=== PATIENT | male | born 1985 | race Hispanic/Latino ===

== ENCOUNTER 2025-01-22 14:28 | Inpatient (IN) | payer BC, OTHER ==
[~2025-01-22] VITALS: Ht 177.8 cm; Wt 90.7 kg
--- NOTE | 2025-01-22 14:53 | EKG ---
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
[2025-01-22 15:11] LABS: IMMATURE GRANULOCYTE ABSOLUTE 0.01 K/uL (0-1); NUCLEATED RED BLOOD CELLS 0.0 % (0.0-0.19); PLATELET COUNT (AUTO) 19 K/uL (130-400); RED BLOOD CELL COUNT(AUTO) 2.62 MIL/uL (4.50-6.20); RED CELL DISTRIBUTION WIDTH 19.2 % (11.0-15.5); WHITE BLOOD COUNT (AUTO) 3.3 K/uL (4.8-10.8)
[2025-01-22 15:23] LABS: CREATININE 0.7 mg/dL (0.5-1.3); GLOMERULAR FILTR. RATE CALC 120.0 mL/min (>90); GLUCOSE,RANDOM 170.0 mg/dL (70-105); SODIUM SERUM 134.0 mmol/L (136-145); UREA NITROGEN, BLOOD 2.0 mg/dL (7-18)
[2025-01-22 15:34] LABS: ASPARTATE AMINOTRANSFERASE 119.0 U/L (10-37); TOTAL PROTEIN, SERUM 8.0 g/dL (6.0-8.3)
--- NOTE | 2025-01-22 15:41 | ERN ---
ED Note History of Present Illness Stated Complaint: WEAKNESS Chief Complaint: Weakness Time Seen by MD: 14:35 Time Seen by Midlevel: 14:35 Dictation: 39-YEAR-OLD MALE WHO PRESENTS TO THE ED FOR EVALUATION OF ABNORMAL LABS. WAS SEEN IN [place] LAST MONTH AND TOLD NEED A BLOOD TRANSFUSION DUE TO LOW PLATELETS HOWEVER WAITED TO COME IN. REPORTS HEAVY ALCOHOL DRINKING DAILY. ALSO REPORTS HE FELL AND LANDED ON HIS ABDOMEN FEW DAYS AGO. PATIENT CURRENTLY ASYMPTOMATIC AT THIS TIME DENYING CHEST PAIN, SHORTNESS OF BREATH, ABDOMINAL PAIN Allergies: Coded Allergies: No Known Drug Allergies (Unverified Allergy, Unknown, 01/22/25) Past Medical History Past Medical History: No Pertinent History Surgical History: None RN Note Reviewed/Agreed w/PFSH: Yes Review of System Dictation CONSTITUTIONAL: NEGATIVE FOR FEVER,CHILLS, AND WEIGHT LOSS EYES: NEGATIVE FOR INJURY, PAIN,REDNESS, AND DISCHARGE ENT: NEGATIVE FOR INJURY,PAIN OR SWELLING CARDIOVASCULAR: NEGATIVE FOR CHEST PAIN, PALPITATIONS, AND EDEMA RESPIRATORY: NEGATIVE FOR SHORTNESS OF BREATH, COUGH, AND WHEEZING, ABDOMEN/GI: NEGATIVE FOR ABDOMINAL PAIN, NAUSEA, VOMITING, DIARRHEA, AND CONSTIPATION BACK: NEGATIVE FOR INJURY AND PAIN : NEGATIVE FOR INJURY, BLEEDING AND DISCHARGE MS/EXTREMITY: NEGATIVE FOR INJURY AND DEFORMITY SKIN: NEGATIVE FOR RASH, AND DISCOLORATION NEURO: NEGATIVE FOR HEADACHE, WEAKNESS, NUMBNESS, TINGLING, AND SEIZURE PSYCH: NEGATIVE FOR SUICIDE IDEATION, HOMICIDAL IDEATION, AND HALLUCINATIONS Review of Systems: was completed Initial Vital Sign VS Vital Signs Date Time Temp Pulse Resp B/P (MAP) Pulse Ox O2 Delivery O2 Flow Rate FiO2 01/22/25 14:31 98.8 80 16 120/77 99 Room Air 0 01/22/25 15:24 21 Physical Exam Dictation GENERAL: AWAKE, ALERT, NAD HEAD/FACE: NORMOCEPHALIC, ATRAUMATIC EYES: PERRL, EOMI, VISION AT BASELINE, SCLERAL ICTERUS ENT: ORAL CAVITY CLEAR, TMS CLEAR, NO SIGNS OF INFECTION NECK: TRACHEA MIDLINE, SUPPLE, NO NUCHAL RIGIDITY CARDIOVASCULAR: RRR, NORMAL S1/S2, NO MRGS, NO JVD RESPIRATORY: CTAB, NO RESPIRATORY DISTRESS, NO RALES OR WHEEZES ABDOMEN: DISTENDED, BRUISING NOTED TO THE RIGHT SIDE OF ABDOMEN. NO REBOUND, GUARDING, RIGIDITY. SKIN: WARM, DRY, NORMAL TURGOR, NO RASH MS/EXTREMITY: PULSES EQUAL, NO CYANOSIS, NEUROVASCULAR INTACT, FROM NEURO: COAX4, GCS 15, STRENGTH 5/5, CN 2-12 INTACT, NORMAL CEREBELLAR EXAM, NORMAL GAIT, PSYCH: NORMAL BEHAVIOR, MOOD, AND AFFECT NORMAL Results (Laboratory/Radiology) Laboratory/Radiology Laboratory Tests Test 01/22/25 14:57 White Blood Count 3.3 K/uL (4.8-10.8) L Red Blood Count 2.62 MIL/uL (4.50-6.20) L Hemoglobin 8.4 g/dL (14.0-18.0) L Hematocrit 26.4 % (42-54) L Mean Corpuscular Volume 100.8 fL (79-99) H Mean Corpuscular Hemoglobin 32.1 pg (27.0-33.0) Mean Corpuscular Hemoglobin Concent 31.8 g/dL (32.0-36.0) L Red Cell Distribution Width 19.2 % (11.0-15.5) H Platelet Count 19 K/uL (130-400) L Mean Platelet Volume 12.2 fL (7.5-10.5) H Immature Granulocyte % (Auto) 0.3 % (0-1) Neutrophils (%) (Auto) 43.1 % (40.0-77.0) Lymphocytes (%) (Auto) 44.9 % (21.0-51.0) Monocytes (%) (Auto) 8.4 % (3.0-13.0) Eosinophils (%) (Auto) 2.4 % (0.0-8.0) Basophils (%) (Auto) 0.9 % (0.0-5.0) Neutrophils # (Auto) 1.4 K/uL (1.8-7.7) L Lymphocytes # (Auto) 1.5 K/uL (1.0-4.8) Monocytes # (Auto) 0.3 K/uL (0.1-1.0) Eosinophils # (Auto) 0.08 K/uL (0.00-0.70) Basophils # (Auto) 0.03 K/uL (0.00-0.20) Absolute Immature Granulocyte (auto 0.01 K/uL (0-1) Nucleated Red Blood Cells 0.0 % (0.0-0.19) Platelet Morphology Comment See comments Red Blood Cell Morphology See comments Sodium Level 134 mmol/L (136-145) L Potassium Level 3.2 mmol/L (3.5-5.1) L Chloride Level 101 mmol/L (101-111) Carbon Dioxide Level 26 mmol/L (21-32) Blood Urea Nitrogen 2 mg/dL (7-18) L Creatinine 0.7 mg/dL (0.5-1.3) Glomerular Filtration Rate Calc 120 mL/min (>90) Random Glucose 170 mg/dL (70-105) H Total Calcium 6.9 mg/dL (8.5-10.1) L Total Bilirubin 4.4 mg/dL (0.2-1.0) H Aspartate Amino Transf (AST/SGOT) 119 U/L (10-37) H Alanine Aminotransferase (ALT/SGPT) 29 U/L (12-78) Alkaline Phosphatase 181 U/L (50-136) H Ammonia 82 umol/L (11-32) H Troponin I High Sensitivity 13 ng/L (4-75) Total Protein 8.0 g/dL (6.0-8.3) Albumin 1.5 g/dL (3.5-5.0) L Labs Reviewed?: Yes EKG Comment: Date:01/22/2025 Time:1449 Ventricular rate:90 LA interval:176 QRS duration:119 QT/QTc:411 EKG interpretation: Sinus rhythm, prolonged QT interval Reviewed by ED Attending ED Course ED Course Orders Procedure Category Date Status Time Type And Screen BBK 01/22/25 Complete 14:44 Cbc With Differential LAB 01/22/25 Complete 14:44 Ammonia LAB 01/22/25 Complete 14:44 Comprehensive LAB 01/22/25 Complete Metabolic Panel 14:44 Urinalysis Profile LAB 01/22/25 Logged 14:44 Chest 1vw RAD 01/22/25 Resulted 14:44 Troponin I High LAB 01/22/25 Complete Sensitivity 14:44 12 Lead Ekg Tracing- EKG 01/22/25 Resulted Technical 14:44 Us Abdominal Ruq\Ltd US 01/22/25 Resulted 15:42 Ct Abdomen/Pelvis CT 01/22/25 Resulted W/Contrast 15:51 Iohexol (Omnipaque) PHA 01/22/25 Complete 16:02 Admit Orders ADM 01/22/25 Transmitted 18:11 Fall Precautions CPOE 01/22/25 Transmitted 18:11 Etoh Alcohol MANDEEP 01/22/25 In Process Withdrawal Ords 18:11 Chlordiazepoxide Hcl PHA 01/22/25 Logged 25 Mg Cap (Librium 18:30 Pharmacy PHA 01/22/25 Logged Communication 18:30 Use The [facility] CPOE 01/22/25 Transmitted Assmt. Tool 18:11 Assess The Need For CPOE 01/22/25 Transmitted Seizure & 18:11 Vs Per Unit Routine & CPOE 01/22/25 Transmitted With 18:11 Document Etoh CPOE 01/22/25 Transmitted Withdrawal Score 18:11 Diazepam 5 Mg/Ml 2 Ml PHA 01/22/25 Logged Syg (Valium 5 Mg/M 18:30 Consistent Carb DIET 01/23/25 Transmitted Breakfast Basic Metabolic Panel LAB 01/23/25 Verified 04:00 Cbc With Differential LAB 01/23/25 Verified 04:00 Magnesium LAB 01/23/25 Verified 04:00 Phosphorus LAB 01/23/25 Verified 04:00 Pathology Smear Review LAB 01/22/25 Logged 18:11 Activity: Ad Laila CPOE 01/22/25 Transmitted 18:11 Apply Knee High Teds CPOE 01/22/25 Transmitted 18:11 Apply Scds CPOE 01/22/25 Transmitted 18:11 Condition: CPOE 01/22/25 Transmitted 18:11 Daily Fluid Intake CPOE 01/22/25 Transmitted Restriction 18:11 Daily Weights CPOE 01/22/25 Transmitted 18:11 I&O Q Shift CPOE 01/22/25 Transmitted 18:11 Nurse To Enter Home CPOE 01/22/25 Transmitted Medication 18:11 Oxygen By Nc/Pulse Ox CPOE 01/22/25 Transmitted 18:11 Vital Signs(Adult CPOE 01/22/25 Transmitted Hospitalist) 18:11 Ammonia LAB 01/22/25 Logged 18:11 Alcohol, Blood LAB 01/22/25 Logged 18:11 Acetaminophen 325 Tab PHA 01/22/25 Logged (Tylenol 325mg Tab 18:30 Hydralazine 20mg Inj PHA 01/22/25 Logged (Apresoline 20mg In 18:30 Furosemide 40mg Vial PHA 01/22/25 Logged (Lasix 40mg Vial) 21:00 Famotidine 20mg Tab PHA 01/23/25 Logged (Pepcid 20mg Tab) 09:00 Lactulose 20 Gm/30 Ml PHA 01/22/25 Logged Udcup (Constulose 18:30 Morphine 4mg Syg PHA 01/22/25 Logged (Morphine 4mg Syg) 18:30 Ondansetron 4mg Inj PHA 01/22/25 Logged (Zofran 4mg Inj) 18:30 Current Medications Medications (Trade) Dose Ordered Sig/Jennifer Route PRN Reason Start Time Stop Time Status Last Admin Dose Admin Acetaminophen (TYLenol 325MG TAB) 650 mg Q6H PRN PO TEMPERATURE GREATER THAN 101.5 01/22/25 18:30 02/21/25 18:29 UNV Chlordiazepoxide HCl (LIBrium 25 MG CAP) 25 mg Q8H PO 01/22/25 18:30 01/29/25 18:29 UNV Diazepam (VALium 5 MG/ML 2 ML SYG) 5 mg Q4H PRN IVP ALCOHOL WITHDRAWAL PROTOCOL 01/22/25 18:30 01/29/25 18:29 UNV Famotidine (Pepcid 20mg Tab) 20 mg DAILY PO 01/23/25 09:00 02/22/25 08:59 UNV Furosemide (LASix 40MG VIAL) 40 mg BID IVP 01/22/25 21:00 02/21/25 20:59 UNV Hydralazine HCl (APRESOLine 20MG INJ) 10 mg Q6H PRN IV For:SBP above 160;DBP above 90 01/22/25 18:30 02/21/25 18:29 UNV Iohexol (Omnipaque) 75 ml STK-MED ONCE IV 01/22/25 16:02 01/22/25 16:04 DC Lactulose (Constulose 20gm/ 30ml Udcup) 20 gm BID PRN PO CONSTIPATION 01/22/25 18:30 02/21/25 18:29 UNV Morphine Sulfate (morPHINE 4MG SYG) 2 mg Q4H PRN IVP SEVERE PAIN (7-10) 01/22/25 18:30 01/29/25 18:29 UNV Ondansetron HCl (zoFRAN 4MG INJ) 4 mg Q6H PRN IV NAUSEA/VOMITING 01/22/25 18:30 02/21/25 18:29 UNV Pharmacy Profile Note (Pharmacy Communication) 1 each PROTOCOL PRN MISC ETOH Withdrawal Score changes 01/22/25 18:30 01/29/25 18:29 UNV Vital Signs Date Time Temp Pulse Resp B/P (MAP) Pulse Ox O2 Delivery O2 Flow Rate FiO2 01/22/25 17:34 91 20 110/75 97 Room Air* 0 21 01/22/25 15:24 87 20 124/75 97 Room Air* 0 21 01/22/25 14:31 98.8 80 16 120/77 99 Room Air 0 1818 Discussed case with hospitalist [employer] DIRECT[employer] Anselmo, who accepts patient under Dr. Bowman Medical Decision Making MDM MDM: DIFFERENTIAL DIAGNOSIS: ANEMIA, THROMBOCYTOPENIA, LIVER CIRRHOSIS, HEPATIC ENCEPHALOPATHY, ABDOMINAL PAIN, GENERALIZED WEAKNESS RATIONALE: TESTS CONSIDERED AND ORDERED SECONDARY TO SHARED DECISION MAKING INCLUDE: PREVIOUS OUTSIDE RECORDS REVIEWED: OLD ER VISITS. MEDICATIONS-PER MEDICATION RECONCILIATION NEED FOR HOSPITALIZATION: PATIENT DOES MEET CRITERIA FOR HOSPITALIZATION. NEED FOR EMERGENCY MAJOR/MINOR SURGERY: NO PATIENT'S PRIOR EXTERNAL MEDICAL RECORDS FROM OTHER ER VISITS WERE REVIEWED BY ME INDICATED. PRIOR TESTING AND RESULTS FROM PREVIOUS VISITS WERE REVIEWED. PRIOR TESTS WERE TAKEN INTO ACCOUNT WITH MEDICAL DECISION MAKING AND RESOURCE UTILIZATION, INDEPENDENT HISTORIAN/HISTORIANS WERE USED TO OBTAIN COMPLETE MEDICAL HISTORY. I INDEPENDENTLY INTERPRETED THE TEST THAT WERE PERFORMED, RESULTS WERE REVIEWED BY ME AND CONSIDERED FINDINGS ON RADIOLOGY IF ORDERED. MEDICAL MANAGEMENT AND EXAMINATION INTERPRETATION DISCUSSIONS WERE HAD BY ME WITH OTHER QUALIFIED HEALTHCARE PROFESSIONALS INDICATED FOR THE PATIENT'S CARE. HEMOGLOBIN 8.4, PLATELETS 19. NORMAL KIDNEY FUNCTION SO CT THE ABDOMEN PELVIS WAS ORDERED WITH CONTRAST TO RULE OUT ANY INTRA-ABDOMINAL INJURY DUE TO THE FALL AND BRUISING NOTED TO THE RIGHT SIDE OF THE ABDOMEN. NO PERITONEAL SIGNS AT THIS TIME. PATIENT AFEBRILE, NONSEPTIC APPEARING. POTASSIUM 3.2, CALCIUM 6.9, CORRECT HIS 8.9 DUE TO ALBUMIN 1.5. TOTAL BILI 4.4, AST 119, ALK PHOS 181. AMMONIA 82. DX & DISP Disposition: Inpatient Decision to Admit Date: Jan 22, 2025 Decision to Admit Time: 15:30 Departure Impression: Primary Impression: Thrombocytopenia Additional Impressions: Liver cirrhosis, alcoholic, Hypokalemia, Total bilirubin, elevated, Anemia Condition: Stable I have reviewed the case, and I agree with, Diagnosis and Plan JOSE MIGUEL SURESH Jan 22, 2025 15:41
--- NOTE | 2025-01-22 15:43 | HMCIMG ---
CLINICAL INFORMATION GBW COMPARISON None. TECHNIQUE Frontal view chest. FINDINGS Lines and tubes: None Lungs: Clear. Pleura: Unremarkable. No effusion or pneumothorax. Cardiomediastinal Silhouette: Unremarkable. Bones: Normal for age. Soft Tissues: Normal. IMPRESSION No acute cardiopulmonary findings. /[place]
[2025-01-22] MEDS ORDERED: IOHEXOL-350 75 ML VIAL IV ONE (16:02)
--- NOTE | 2025-01-22 16:25 | HMCIMG ---
Exam: Right upper quadrant ultrasound. History: Elevated total bilirubin. Liver cirrhosis Technique: Static grayscale and color Doppler images are submitted. Findings: The contours of the liver are abnormally microlobulated. The liver is normal in size it measures 13.9 cm in greatest dimension. There is abnormal coarse echogenicity throughout. No discrete mass or intra-hepatic biliary ductal dilatation. The visualized portions of the pancreas are unremarkable. The tail is not well seen due to overlying bowel gas. There are no gallstones. There is no gallbladder wall thickening, patrice-cholecystic fluid, or sonographic Chávez sign. The common bile duct measures 4.0 mm in diameter. The right kidney is normal in size, contour and echotexture. It measures 11.9 cm in greatest sagittal dimension. There is no hydronephrosis, nephrolithiasis or patrice-nephric fluid. Ascites within the right upper quadrant, right lower and left lower quadrants IMPRESSION: 1. Cirrhotic morphology of the liver with normal size. 2. Moderate ascites. /[place]
--- NOTE | 2025-01-22 16:54 | HMCIMG ---
CLINICAL INFORMATION Fall, bruising COMPARISON None. TECHNIQUE Volumetric helical CT images of the abdomen and pelvis with contrast FINDINGS Liver: Cirrhotic morphology with mild perihepatic ascites. Gallbladder: No calcified gallstones or sludge. No wall thickening. Biliary System: Non-dilated. Pancreas: Normal. Spleen: Enlarged, measuring up to 15 cm. Adrenals: Normal. Kidneys: Normal bilaterally. Ureters: Normal. Bladder: Normal. Pelvis: No pelvic masses. No abnormal pelvic fluid. Stomach: Normal. Duodenum: Normal. Small Bowel: Normal. Colon: Mild diffuse colonic wall thickening suggestive of portal colopathy. Appendix: Normal. Lymph Nodes: No lymphadenopathy. Peritoneum: Mild to moderate volume ascites. Retroperitoneum: Normal. Vessels: Multiple paraesophageal and perigastric varices. Splenorenal shunt. Abdominal Wall: Normal. Bones: Normal. Lung Bases: Small left pleural effusion. Inferior Mediastinum: Normal. IMPRESSION No acute traumatic findings in the abdomen or pelvis. Cirrhosis with sequela of portal hypertension including splenomegaly, mild to moderate volume ascites, and paraesophageal and perigastric varices. Mild diffuse colonic wall thickening suggestive of portal colopathy. /[place]
--- NOTE | 2025-01-22 18:15 | HP ---
History of Present Illness Reason for Visit: weakness History of Present Illness Mr. Brad Barksdale is a 39-year-old male that was seen and examined today on 01/22/2025. Patient is a good historian of personal health Patient reports that he came to the emergency department with a chief complaint of abnormal labs. Patient states he went to go have his labs done in [place] and was told that his platelets were low in the he needed a platelet transfusion. Today in the emergency department WBCs 3.3, RBCs 2.62, platelets 19, potassium 3.2, total bilirubin 4.4, AST 119, ammonia 82, albumin 1.5, alcohol 267, chest x-ray is unremarkable, abdominal ultrasound shows ascites and liver cirrhosis, CT of abdomen shows cirrhosis, portal hypertension, esophageal varices. Emergency room physician recommended that patient be admitted with a diagnosis of liver cirrhosis. Past Medical History ADDITIONAL PAST MEDICAL HISTORY: [] Denies SOCIAL HISTORY: [Patient drinks two beers daily that are 24 oz each, patient denies smoking, alcohol use. Patient lives with the spouse, Felisha phan. Patient is typically independent of all his ADLs. Patient denies difficulty pa in is bills.] SURGICAL HISTORY: [Denies] Review of Systems General: No Fever, No Chills, No Night Sweats, No Fatigue, No Malaise, No Appetite, No Other HEENT: No Head Aches, No Visual Changes, No Eye Pain, No Ear Pain, No Dysphasia, No Sinus Congestion, No Post Nasal Drip, No Sore Throat, No Other Pulmonary: No Dyspnea, No Cough, No Pleuritic Chest Pain, No Other Cardiovascular: No: Chest Pain, Palpitations, Orthopnea, Paroxysmal Noc. Dyspnea, Edema, Lt Headedness, Other Gastrointestinal: No: Nausea, Vomiting, Abdominal Pain, Diarrhea, Constipation, Melena, Hematochezia, Other Genitourinary: No Dysuria, No Frequency, No Incontinence, No Hematuria, No Retention, No Other Musculoskeletal: No: other, neck pain, shoulder pain, arm pain, back pain, hand pain, leg pain, foot pain Skin: No Urticaria, No Rash, No Other Neurological: No: Weakness, Numbness, Incoordination, Change in speech, Confusion, Seizures, Other Allergies: Coded Allergies: No Known Drug Allergies (Unverified Allergy, Unknown, 01/22/25) Exam Vital Signs Vital Signs Date Time Temp Pulse Resp B/P (MAP) Pulse Ox O2 Delivery O2 Flow Rate FiO2 01/22/25 17:34 91 20 110/75 97 Room Air* 0 21 01/22/25 14:31 98.8 General Appearance: Alert, Oriented X3, Cooperative, Other (Positive icterus) HEENT: Atraumatic, EOMI Respiratory: Clear to auscultation, Normal air movement, NL respiratory effort Cardiovascular: Regular rate, Regular rhythm, Normal S1, Normal S2 Abdominal: Other (Abdomen moderately distended) Extremities: Other (+1-2 pitting edema to bilateral lower extremities) Skin: No significant lesion Neuro: Normal gait, Normal speech, Strength at 5/5 X4 ext, Sensation intact, Cr anial nerves 3-12 NL Psych/Mental Status: Mental status NL, Mood NL, Thoughts/Content NL Assessment/Plan ASSESSMENT: [ Acute decompensated alcoholic liver cirrhosis, POA Ascites, POA Hepatic encephalopathy, POA esophageal varices, POA Acute alcohol intoxication, POA Alcohol dependency, POA Pancytopenia, POA Hypokalemia, POA] PLAN: [ Admit patient to medical floor as inpatient status. Acute decompensated liver cirrhosis, ascites, hepatic encephalopathy, esophageal varices: Consult gastroenterology service, Dr. Manjarrez for evaluation and further recommendation Check stool for occult blood, follow up with the results Monitor intake and output every shift Weight patient daily Fluid restriction 1500 mL daily Lasix 40 mg IV twice daily Lactulose 20 g/30 mL by mouth twice daily Check ammonia level, follow up with the results Start propranolol 20 mg by mouth twice daily Consider Interventional Radiology for paracentesis if recommended by Gastroenterology Service and patient does not respond to diuresis Acute alcohol intoxication, alcohol dependence: Check alcohol level, follow up with the results Counseled patient on alcohol cessation. Librium 25 mg by mouth every 8 hours As needed Ativan for alcohol withdrawal 1 mg every 4 hours Use CIWA-AR assessment tool Document EtOH withdrawal score Assess the need for seizure and aspiration precautions Hypokalemia: Replace potassium per hospital protocol Pancytopenia: It is evident at this time that pancytopenia is most likely secondary to liver cirrhosis. Check peripheral smear, follow up with the results. Consider consulting Hematology if indicated. Consider transfusing platelets if any further decrease in platelet count GI prophylaxis, famotidine DVT prophylaxis, Brady's and SCDs avoid anticoagulation at this time due to severe thrombocytopenia ADVANCED CARE PLANNING 1. Which of the following were discussed? Hospice Care - Yes Therapeutic options - yes Advance Directives - Yes - patient states he does not have any advance directives in place at this time, however his , Beena can make decisions for him if he becomes unable. Other discussions - patient wishes to remain a full code 2. Discussed with who? Patient 3. Voluntary nature of this service was explained to the patient? Yes 4. Amount of time spent - ___16 minutes____ 5. Reviewed by Physician? (if this service was performed by NPP) Yes This document was generated in part using voice recognition software, occasional wrong word or sound alike substitutions may have occurred due to the inherent limitations of voice recognition software. Read the chart carefully and recognize using context, where the substitutions have occurred. Although every effort was made to edit the content, resistor tester and typing errors may occur ATTESTATION BY PHYSICIAN I have seen and examined the patient. I reviewed the documentation, medical decision making, and treatment plan as noted by the mid-level provider above. I agree with the findings and plan of care. GERARDO GRAHAM [facility] Jan 22, 2025 18:15
[2025-01-22] MEDS ORDERED: PHARMACY COMMUNICATION MISC PRN (18:30)
[2025-01-22] MEDS ORDERED: PoTASSium chl 10% ELIXIR 20MEQ 20 MEQ/15 ML UDCUP PO PRN (18:30)
[2025-01-22] MEDS ORDERED: LACTULOSE 20 GM/30 ML UDCUP PO PRN (18:30)
[2025-01-22] MEDS: PoTASSium chloRIDE 20MEQ ER 20 MEQ ERTAB PO PRN (18:41)
[2025-01-22 18:57] LABS: ALCOHOL, BLOOD 267 mg/dL (0-10)
[2025-01-22] MEDS: LACTULOSE 20 GM/30 ML UDCUP PO SCH (22:05)
[2025-01-22] MEDS: PROPRANOLOL HCL 20 MG TAB PO SCH (22:05)
--- NOTE | 2025-01-22 23:32 | NUR ---
PT REQUESTING TO LEAVE AMA, GERARDO PÉREZ MADE AWARE, SPOKE WITH PATIENT AT BEDSIDE. PT INFORMED OF THE POSSIBILITY OF AND ALL OTHER RISKS OF LEAVING AMA BY ELISA CARRILLO. PT CONTINUED TO VERBALIZE WANTING TO LEAVE AMA. PT INFORMED THAT DUE TO RECORDED ALCOHOL LEVEL AND CURRENT MEDICAL CONDITION FAMILY IS REQUIRED TO SIGN FOR HIM TO LEAVE AMA. PENDING FAMILY ARRIVAL.
[2025-01-22 23:45] VITALS: BP 119/89; PULSE 86; RESP 17; TEMP 98.1; O2SAT 98
--- NOTE | 2025-01-23 00:45 | NUR ---
PENDING ARRIVAL FOR AMA DISPO
--- NOTE | 2025-01-23 01:40 | NUR ---
PT ELOPED WITH IV IN PLACE, SEARCHED LOBBY AND ER, PER PT SHE RECEIVED A NOTIFICATION THAT HER WAS TRYING TO USE HER CARD AT STRIPES, HPD MADE AWARE, IN ER RM 9, PENDING PD CONTACT WITH PATIENT.
[2025-01-23] MEDS ORDERED: FAMOTIDINE 20MG TAB PO SCH (09:00)
== END 2025-01-23 02:33 | disposition left against medical advice (07) | DRG 433 ==
LOC: EDH 14:28 → EDHIP 18:11 → 4AH 01-23 02:28
PROVIDERS: ADMIT Internal Medicine; ATTEND Internal Medicine
DX: K70.31 Alcoholic cirrhosis of liver with ascites (principal); D61.818 Other pancytopenia; K76.6 Portal hypertension; I85.10 Secondary esophageal varices without bleeding; E87.6 Hypokalemia; K76.82 Hepatic encephalopathy; Z53.29 Procedure and treatment not carried out because of patient's decision for other reasons; F10.129 Alcohol abuse with intoxication, unspecified; Y90.9 Presence of alcohol in blood, level not specified; Z51.5 Encounter for palliative care; Z79.899 Other long term (current) drug therapy
CPT/HCPCS: 36415; 71045; 74177; 76705; 80053; 82140; 84484; 85025; 86850; 86900; 86901; 93005; 96374; 99285; G0378; J1938; Q9967